=== PATIENT | female | born 1930 | race Caucasian/White ===

== ENCOUNTER → 2017-08-29 | Outpatient (CLI) | payer MEDICARE, OTHER | END | disposition home or self-care (01) | LOC: RAD 09:58 | DX: R05 Cough (principal) | CPT/HCPCS: 71046 ==

== ENCOUNTER 2017-12-21 12:35 | Emergency (ER) | payer MEDICARE, OTHER ==
[2017-12-21] MEDS: IBUPROFEN 600 MG TAB PO (14:04)
== END 2017-12-21 16:22 | disposition home or self-care (01) ==
LOC: E/R 16:22
DX: S20.221A Contusion of right back wall of thorax, initial encounter (principal); J45.909 Unspecified asthma, uncomplicated; I10 Essential (primary) hypertension; E11.9 Type 2 diabetes mellitus without complications; W01.0XXA Fall on same level from slipping, tripping and stumbling without subsequent striking against object, initial encounter; Y92.9 Unspecified place or not applicable; Z79.82 Long term (current) use of aspirin; Z79.84 Long term (current) use of oral hypoglycemic drugs; Z87.891 Personal history of nicotine dependence
CPT/HCPCS: 70450; 72072; 99284-25